=== PATIENT | female | born 1970 | race Caucasian/White ===

== ENCOUNTER → 2023-11-01 07:59 | Outpatient (REF) | payer OTHER, SELFPAY | LOC: WDC 07:59 | PROVIDERS: ATTENDING PHYSICIAN Family Medicine | DX: Z12.31 Encounter for screening mammogram for malignant neoplasm of breast (principal) | CPT/HCPCS: 77063; 77067 ==

== ENCOUNTER 2024-08-05 07:15 | Emergency (ER) | payer OTHER, SELFPAY ==
[2024-08-05] VITALS (9 sets, daily range): BP systolic 121–144; BP diastolic 78–99; PULSE 87–106
[2024-08-05 07:44] LABS: % Basophils 0.2 % (0-2); % Eosinophils 0.3 % (0-6); % Lymphocytes 5.1 % (20.5-51.1); % Monocytes 5.2 % (1.7-9.3); % Neutrophils 88.2 % (42.2-75.2); Absolute Basophils 0.1 10^3/uL (0-0.2); Absolute Eosinophils 0.1 10^3/uL (0-0.7); Absolute Immature Granulocytes 0.2 10^3/uL (0-0.05); Absolute Monocytes 1.1 10^3/uL (0.1-0.6); Absolute Neutrophils 17.9 10^3/uL (1.4-6.5); Hematocrit 49.8 % (37.0-47.0); Hemoglobin 16.5 g/dL (12.0-16.0); Mean Corp Hgb Conc. 33.1 g/dL (33.0-37.0); Mean Corpuscular Hgb 30.2 pg (27.0-31.0); Mean Corpuscular Volume 91.2 fL (81.0-99.0); Mean Platelet Volume 9.6 fL (7.4-10.4); Nucleated Red Blood Cells % 0 %; Platelet Count 296 10^3/uL (130-400); Red Blood Cell Count 5.46 10^6/uL (4.20-5.40); Red Cell Dist. Width 12.9 % (11.5-14.5); White Blood Cell Count 20.4 10^3/uL (4.8-10.8)
[2024-08-05 07:54] LABS: Glucose - Point of Care 210 mg/dl (70-99)
[2024-08-05 07:56] LABS: ALT (SGPT) 22 U/L (0-35); AST (SGOT) 29 U/L (14-36); Albumin 4.5 g/dl (3.5-5.0); Alkaline Phosphatase 122 U/L (38-126); Blood Urea Nitrogen 24 mg/dl (7-17); Calcium 9.1 mg/dl (8.4-10.2); Carbon Dioxide 25 mmol/L (22-30); Chloride 105 mmol/L (98-107); Glucose 201 mg/dl (70-99); Potassium 4.2 mmol/L (3.5-5.1); Sodium 141 mmol/L (135-145); Total Bilirubin 0.4 mg/dl (0.2-1.3); Total Protein 7.4 g/dl (6.3-8.2); eGFR > 60.00
[2024-08-05 08:02] LABS: COVID-19 Antigen Negative (Negative)
[2024-08-05] MEDS: ZOFRAN 4 MG IV (08:04)
[2024-08-05] MEDS: NSS 1000 IV (08:05)
--- NOTE | 2024-08-05 08:08 | ED.GENMED ---
History of Present Illness
General
Chief Complaint: Cold/Flu/URI Symptoms
Source: patient
Exam Limitations: none
Time Seen by Provider: 08/05/24 07:49
Nursing documentation reviewed up to this point in time: agreed with
History of Present Illness
History of Present Illness:
54-year-old female insulin-dependent diabetic presents for nausea vomiting and diarrhea starting around 5 AM. Patient says last evening she checked her blood sugar which was 88 and she ate some crackers and took her Lantus as usual. She went to
sleep and was able to sleep but woke up with some stomach cramps. She promptly had nausea vomiting and diarrhea. She probably had vomited 3 times and had 3 episodes of diarrhea at home before coming to the emergency department where she felt
lightheaded. Patient says she had not syncopized at home but felt like she could. She has not had any chest pain or shortness of breath. 3 weeks ago she had a cold, with a cough and a sore throat which did all resolve for some time before the
symptoms abruptly began this morning. She has no focal abdominal pain, no bloody diarrhea or vomit. She has never had pancreatitis. Patient denies alcohol use. She has not had any recent antibiotics or travel. She is allergic to IV contrast dye
pt does self cath in the morning for urinary retention issues that are chroinc; she has not needed to cath otherwise
no dysuria
reports sister and brother in law both have GI viruses
Past History
Past History
ED Past Medical History: HTN and NIDDM
ED Past Surgical History: None
Social History
Tobacco: Non-smoker
Alcohol: None
Drug: None
Personal: Single
Living: with family
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
Family History
Family History: Diabetes
Phy Exam
Physical Exam
Physical Exam:
GENERAL: Alert , vomiting, pale, diaphoretic
EYE: pupils equal and reactive
NECK: Supple
ENT: o/p clr, mmm.
CARDIAC mildly tachycardic
LUNGS: Clear breath sounds bilaterally, no acute respiratory distress, no wheezes/rales/rhonchi
ABDOMEN: Soft, without focal tenderness, no r/g, no cvat, normal bowel sounds
NEUROLOGICAL: Alert and oriented, no focal neuro deficits
SKIN: Warm and dry, skin intact.
MUSCULOSKELETAL: No edema, well perfused. neg la's sign
PSYCH: Normal and appropriate interaction.
Course
Orders/Labs/Results
Orders:
Orders
08/05/24 07:21
Electrocardiogram (*1) Urgent
Reason for Study: Vertigo / Dizzy
EKG- Treatment ONCE
08/05/24 07:32
CMP [Comprehensive Metabolic Panel] Urgent
COVID-19 Antigen Urgent
Source: Nasal Swab
Complete Blood Count/With Diff Urgent
Lipase Urgent
Comment: ADD ON
Influenza A+B Rapid Molecular Urgent
STEPHIE Source: Nasal Swab
Specimen Description:
08/05/24 07:57
Norovirus by PCR Urgent
STEPHIE Source: Feces/Stool
Specimen Description:
0.9% Sodium Chloride 1000 ml [Nss] 1,000 ml IV BOLUS
Ondansetron Injectable [Zofran] 4 mg IV NOW STA
08/05/24 07:59
CR Chest - 2 Views Urgent
Comment:
Reason For Exam: cough 3 weeks ago
08/05/24 08:00
CT Abd/pel Without Iv Or Oral Urgent
Comment:
Reason For Exam: abd pain, n/v/d, diabetic
08/05/24 08:04
Add On- LAB Urgent
Tests Added?: lipase
08/05/24 09:40
Orthostatic VS- Treatment ONCE
08/05/24 11:35
Urinalysis Reflex To Culture Urgent
Date Specimen was Collected: 08/05/24
Time Specimen was Collected: 11:10
Urine Microscopic Reflex Cult Urgent
Urine Culture Urgent
STEPHIE Source: U
Specimen Description:
Date Specimen was Collected: 08/05/24
Time Specimen was Collected: 11:10
08/05/24 12:21
Cefdinir [Omnicef] 300 mg PO NOW STA
Abnormal Lab Results
08/05/24 08/05/24 08/05/24
07:32 07:52 11:35
WBC 20.4 H 10^3/uL
(4.8-10.8)
RBC 5.46 H 10^6/uL
(4.20-5.40)
Hgb 16.5 H g/dL
(12.0-16.0)
Hct 49.8 H %
(37.0-47.0)
Abs Immat Gran (auto) 0.2 H 10^3/uL
(0-0.05)
Absolute Neuts (auto) 17.9 H 10^3/uL
(1.4-6.5)
Absolute Lymphs (auto) 1.0 L 10^3/uL
(1.2-3.4)
Absolute Monos (auto) 1.1 H 10^3/uL
(0.1-0.6)
Immature Gran % 1.0 H %
(0-0.5)
Neutrophils % 88.2 H %
(42.2-75.2)
Lymphocytes % 5.1 L %
(20.5-51.1)
BUN 24 H mg/dl
(7-17)
Glucose 201 H mg/dl
(70-99)
Urine Nitrite (Reflex) Positive A
(Negative)
Leukocyte Esterase Rfl 2+ A
(Negative)
Urine WBC (Reflex) >100 A /HPF
(0-5)
Urine Bacteria (Reflex) Many A
(Negative)
POC Glucose 210 H mg/dl
(70-99)
08/05/24 07:32
08/05/24 07:32
Vital Signs
Initial and Last Documented VS:
Initial Vital Signs
Temp Pulse Resp BP Pulse Ox
37.0 C 113 18 137/94 98
08/05/24 07:18 08/05/24 07:18 08/05/24 07:18 08/05/24 07:18 08/05/24 07:18
Last Documented Vital Signs
Temp Pulse Resp BP Pulse Ox
37.0 C 92 13 144/89 96
08/05/24 07:18 08/05/24 11:15 08/05/24 11:15 08/05/24 11:00 08/05/24 11:15
MDM/Problems Addressed
Differential Diagnosis Includes:
gastroenterities, vasovagal near syncope, pneumonia, covid, flu, uti
MDM/Problems Addressed:
54 y/o F with h/o IDDM
chronic urinary retention, self caths
says 3 weeks ago she had URI but that resolved
she was well until 5 am todya with several episodes nausea/vomiting/diarrhea
while in the waiting room she felt weak and lightheaded like she was demetrio to pass out
was pale, diaphoretic and mildy hypotensive when brought back
sh ehas no focal abd tendenress but was vomiting actively when in treatment room
w/u here reveals leukocytosis of 20k (she normaly does have elevated wbc 12-14 range) but her hg is 16 so she is likely partially hemoconcentrated
otherwise labs ok
ekg nonischemic, sinus
chest xray indep reivewed, no pna; ct neg other than mild cystitis
pt received ivf and zofran and was up and able to walk to br, not orthostatic
vomiting resolved, toerlated po
UA looks positive
will cover with abx though is uspect she has viral gastroenteritis and not pyelonephrotisi as cause of her vomiting
*Critical Care Note
Total Time (30-74mins, 75-104mins- exclusive of procedures): Not Applicable
ED Attending Note
-
Portions of this chart may have been created with voice recognition software.� Occasional wrong word or��sound alike� substitutions may have occurred due to the inherent limitations of voice recognition software.
Discharge Plan
Departure
Patient Disposition: Home (Routine Discharge)
Date of Disposition: 08/05/24
Time of Disposition: 12:27
Patient with high blood pressure during this ER visit?: No
Condition: Fair
Covid-19: Not Applicable
Discharge Problem:
Gastroenteritis, UTI (urinary tract infection)
Instructions: Near Fainting (DC), Nausea and Vomiting, Adult ED, Urinary tract infection - Discharge instructions
Prescriptions:
New
cefdinir 300 mg capsule
300 mg PO BID Qty: 14 0RF
ondansetron 4 mg tablet,disintegrating
4 mg PO Q8H PRN (Reason: nausea and vomiting) 3 Days Qty: 5 0RF
No Action
insulin regular human [Novolin R Regular U100 Insulin] 100 UNITS/ML solution
0 units SC ACHS Qty: 0 0RF
Rx Instructions:
Sliding Scale/Coverage Insulin
Blood sugar 100-149: No coverage
Blood sugar 150-199: 1 unit
Blood sugar 200-249: 2 units
Blood sugar 250-299: 3 units
Blood sugar 300-349: 4 units
Blood sugar 350-400: 5 units
insulin regular human [Novolin R Regular U100 Insulin] 100 UNITS/ML solution
6 units SC AC Qty: 10 0RF
atenolol 25 MG tablet
12.5 mg PO DAILY Qty: 0 0RF
Rx Instructions:
Take 1/2 of 25mg tab for 12.5mg dose
insulin NPH isoph U-100 human [Novolin N NPH U-100 Insulin] 1,000 UNITS/10 ML suspension
18 units SC HS Qty: 1 0RF
desmopressin [DDAVP] 0.1 MG tablet
0.05 mg PO HS Qty: 60 0RF
Rx Instructions:
take one half tablet at night
Referrals:
Suzanne Garcia MD [Family Provider] -
Activity Restrictions/Additional Instructions:
YOU HAD NAUSEA/VOMITING/DIARRHEA WHICH COULD BE FROM A VIRUS
YOU PROBABLY HAD TRANSIENTLY LOW BLOOD PRESSURE WHICH CAUSED YOU TO NEARLY PASS OUT.
BUT YOU ALSO LOOK TO HAVE A URINE INFECTION
TAKE CEFDINIR TWICE A DAY FO R7 DAYS
ZOFRAN EVERY 8 HORUS NEEDED FOR NAUSEA/VOMITING
STAY HYDRATED
RETURN FOR: REPEATED PASSING OUT EPISODES, OR CONTINUED DIARRHE/AVOMITING WHERE YOU FEEL DEHYDRATED, OR INABILITY TO TOLERATE THE ANTIBIOTICS, OR ANY CONCERNS.
Interventions
Interventions:
*Risk Screen - Suicide Last Done: 08/05/24 07:18
*General Assessment Last Done: 08/05/24 07:18
*Neglect/Abuse Screening Last Done: 08/05/24 07:18
*ED COVID-19 Vaccine History Last Done: 08/05/24 07:18
ED- Pulmonary Assessment Last Done: 08/05/24 08:08
Discharge Date and Time
Print Language: AZERI
[2024-08-05 08:44] LABS: Lipase 127 U/L (23-300)
[2024-08-05 11:44] LABS: Urine Albumin Trace (Neg - Trace); Urine Bilirubin Negative (Negative); Urine Character Clear (Clear); Urine Color Yellow; Urine Glucose Negative (Negative); Urine Ketone Negative (Negative); Urine Leukocyte 2+ (Negative); Urine Nitrite Positive (Negative); Urine Occult Blood Negative (Negative); Urine Urobilinogen Negative (Neg - 1+)
[2024-08-05 11:58] LABS: Urine Bacteria Many (Negative); Urine Red Blood Cell None Seen /HPF (0-2); Urine White Cell >100 /HPF (0-5)
[2024-08-05 11:59] LABS: Urine Squamous Cell >30 /LPF (Few)
[2024-08-05] MEDS: OMNICEF 300 MG PO (12:49)
== END 2024-08-05 14:18 | disposition home or self-care (01) ==
LOC: EMR 07:15
PROVIDERS: Physician Assistant; EMERGENCY PHYSICIAN Emergency Medicine; FAMILY PHYSICIAN Family Medicine
DX: K52.9 Noninfective gastroenteritis and colitis, unspecified (principal); N39.0 Urinary tract infection, site not specified; I10 Essential (primary) hypertension; E11.9 Type 2 diabetes mellitus without complications; Z83.3 Family history of diabetes mellitus
CPT/HCPCS: 99284; 96374; 96361; 71046; 74176; 80053; 81003; 81015; 82962; 83690; 85025; 87086; 87502; 87811; 93005

== ENCOUNTER → 2025-03-28 14:06 | Outpatient (REF) | payer OTHER, SELFPAY | LOC: WDC 14:06 | PROVIDERS: ATTENDING PHYSICIAN Family Medicine | DX: Z12.31 Encounter for screening mammogram for malignant neoplasm of breast (principal) | CPT/HCPCS: 77063; 77067 ==

== ENCOUNTER → 2025-05-19 08:43 | Outpatient (REF) | payer OTHER, SELFPAY | LOC: RAD 08:43 | PROVIDERS: ATTENDING PHYSICIAN Family Medicine | DX: R13.10 Dysphagia, unspecified (principal) | CPT/HCPCS: 74246 ==

== ENCOUNTER 2025-08-08 06:32 | Day surgery (SDC) | payer OTHER, SELFPAY ==
[2025-08-08 08:09] LABS: Glucose - Point of Care 162 mg/dl (70-99)
== END 2025-08-08 09:54 | disposition home or self-care (01) ==
LOC: GI 06:32
PROVIDERS: ATTENDING PHYSICIAN Internal Medicine Gastroenterology
DX: K22.2 Esophageal obstruction (principal); K44.9 Diaphragmatic hernia without obstruction or gangrene; K31.7 Polyp of stomach and duodenum; K31.89 Other diseases of stomach and duodenum; R13.10 Dysphagia, unspecified; R93.3 Abnormal findings on diagnostic imaging of other parts of digestive tract
CPT/HCPCS: 43249; 43239; 82962; 88305; 88342